=== PATIENT | male | born 1995 | race Two or more races ===

== ENCOUNTER 2022-11-12 05:54 | Emergency (ER) | payer OTHER ==
[~2022-11-12] VITALS: Ht 167.6 cm; Wt 63.6 kg
[2022-11-12 05:58] VITALS: BP 131/81
[2022-11-12] MEDS ORDERED: IBUPROFEN 200 MG TABLET PO ONE (07:15)
[2022-11-12] MEDS ORDERED: ERYTHROMYCIN 0.5% 3.5 GM TUBE OPHTHALMIC OINTMENT OU ONE (07:15)
[2022-11-12] MEDS ORDERED: ACETAMINOPHEN/CODEINE 300-30 MG TABLET PO ONE (07:15)
[2022-11-12] MEDS ORDERED: IBUP-1554 PO (07:20)
[2022-11-12] MEDS ORDERED: ACET-2080 PO (07:20)
== END 2022-11-12 07:31 | disposition still patient (30) ==
LOC: EMS 06:04
DX: H16.133 Photokeratitis, bilateral (principal)
CPT/HCPCS: 99284; Z7502; Z7610